=== PATIENT | female | born 2000 | race Caucasian/White ===

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

== ENCOUNTER 2020-01-31 13:08 | Emergency (ER) | payer OTHER ==
[~2020-01-31] VITALS: Ht 157.5 cm; Wt 54.4 kg
[2020-01-31] MEDS ORDERED: REVLIMID2.5 MG (13:32)
== END 2020-01-31 19:51 | disposition home or self-care (01) ==
LOC: ER 13:08
DX: B34.9 Viral infection, unspecified (principal); Z20.828 Contact with and (suspected) exposure to other viral communicable diseases; J11.1 Influenza due to unidentified influenza virus with other respiratory manifestations

== ENCOUNTER 2020-02-15 13:09 | Emergency (ER) | payer OTHER ==
[~2020-02-15] VITALS: Ht 157.5 cm; Wt 54.0 kg
[~2020-02-15 13:09] MED LIST changes: +REVLIMID2.5 MG
== END 2020-02-15 19:43 | disposition home or self-care (01) ==
LOC: ER 13:09
DX: R11.0 Nausea (principal); U07.1 COVID-19; G43.809 Other migraine, not intractable, without status migrainosus

== ENCOUNTER 2020-02-18 02:08 | Inpatient (IN) | payer OTHER ==
[~2020-02-18] VITALS: Ht 157.5 cm; Wt 54.0 kg
== END 2020-02-26 14:13 | disposition home or self-care (01) | DRG 102 ==
LOC: ER 02:08 → EMR PED 02:08 → SURG 03:15
PROVIDERS: ADMIT Internal Medicine; ATTEND Internal Medicine
PROC: B030YZZ Magnetic Resonance Imaging (MRI) of Brain using Other Contrast (ICD-10-PCS; principal; 2020-02-18)
PROC: B030ZZZ Magnetic Resonance Imaging (MRI) of Brain (ICD-10-PCS; 2020-02-19)
PROC: BW28ZZZ Computerized Tomography (CT Scan) of Head (ICD-10-PCS; 2020-02-22)
PROC: B030YZZ Magnetic Resonance Imaging (MRI) of Brain using Other Contrast (ICD-10-PCS; 2020-02-22)
DX: G44.001 Cluster headache syndrome, unspecified, intractable (principal); U07.1 COVID-19; G08 Intracranial and intraspinal phlebitis and thrombophlebitis; J10.1 Influenza due to other identified influenza virus with other respiratory manifestations; M54.81 Occipital neuralgia; M79.18 Myalgia, other site; F41.9 Anxiety disorder, unspecified; G44.209 Tension-type headache, unspecified, not intractable
CPT/HCPCS: 70552; 70553

== ENCOUNTER 2020-03-17 07:56 | Outpatient (CLI) | payer OTHER | END 2020-03-17 15:24 | disposition home or self-care (01) | LOC: MRI 07:56 | PROVIDERS: ATTEND Internal Medicine | DX: G08 Intracranial and intraspinal phlebitis and thrombophlebitis (principal); D68.8 Other specified coagulation defects; D68.69 Other thrombophilia; D68.62 Lupus anticoagulant syndrome; E72.12 Methylenetetrahydrofolate reductase deficiency | CPT/HCPCS: 70544; 70552 ==

== ENCOUNTER → 2020-03-30 06:56 | Outpatient (CLI) | payer OTHER | END | disposition home or self-care (01) | LOC: LAB 06:56 | PROVIDERS: ATTEND Internal Medicine Hematology & Oncology | DX: D68.8 Other specified coagulation defects (principal); D68.61 Antiphospholipid syndrome; E72.12 Methylenetetrahydrofolate reductase deficiency; G08 Intracranial and intraspinal phlebitis and thrombophlebitis ==

== ENCOUNTER 2020-06-20 11:19 | Outpatient (CLI) | payer OTHER | END 2020-06-20 15:00 | disposition home or self-care (01) | LOC: PPH VACUNA 11:19 | DX: Z23 Encounter for immunization (principal) ==

== ENCOUNTER 2020-06-23 08:22 | Outpatient (CLI) | payer OTHER | END 2020-06-23 08:24 | disposition home or self-care (01) | LOC: MRI 08:22 | DX: I67.6 Nonpyogenic thrombosis of intracranial venous system (principal); I82.890 Acute embolism and thrombosis of other specified veins | CPT/HCPCS: 70552 ==

== ENCOUNTER 2020-07-14 19:50 | Emergency (ER) | payer OTHER ==
[~2020-07-14] VITALS: Ht 157.5 cm; Wt 45.4 kg
[2020-07-14] MEDS ORDERED: COUMARIN1 GM PO (20:01)
== END 2020-07-14 22:59 | disposition home or self-care (01) ==
LOC: ER 19:50
DX: R10.32 Left lower quadrant pain (principal)

== ENCOUNTER → 2020-09-07 10:40 | Outpatient (CLI) | payer OTHER ==
[~2020-09-07 10:40] MED LIST changes: +COUMARIN1 GM PO
== END | disposition home or self-care (01) ==
LOC: LAB 07:41
DX: D68.69 Other thrombophilia (principal); D68.2 Hereditary deficiency of other clotting factors

== ENCOUNTER 2020-10-12 10:43 | Outpatient (CLI) | payer OTHER | END 2020-10-12 10:46 | disposition home or self-care (01) | LOC: MRI 10:43 | PROVIDERS: ATTEND Internal Medicine | DX: R51.9 Headache, unspecified (principal) | CPT/HCPCS: 70552 ==

== ENCOUNTER 2021-02-09 08:00 | Outpatient (CLI) | payer OTHER | END 2021-02-09 08:30 | disposition home or self-care (01) | LOC: PPH VACUNA 08:00 | DX: Z23 Encounter for immunization (principal) ==

== ENCOUNTER 2021-02-10 08:16 | Outpatient (CLI) | payer OTHER | END 2021-02-10 15:00 | disposition home or self-care (01) | LOC: LAB 08:16 | PROVIDERS: ATTEND Internal Medicine | DX: E11.9 Type 2 diabetes mellitus without complications (principal) ==

== ENCOUNTER 2022-06-25 10:39 | Outpatient (CLI) | payer OTHER | END 2022-06-25 11:00 | disposition home or self-care (01) | LOC: LAB 10:39 | PROVIDERS: ATTEND Internal Medicine | DX: G09 Sequelae of inflammatory diseases of central nervous system (principal) ==

== ENCOUNTER → 2022-06-25 | Outpatient (CLI) | payer OTHER | END | disposition home or self-care (01) | LOC: MRI 11:04 | PROVIDERS: ATTEND Internal Medicine | DX: Z86.718 Personal history of other venous thrombosis and embolism (principal); J11.1 Influenza due to unidentified influenza virus with other respiratory manifestations; J09.X2 Influenza due to identified novel influenza A virus with other respiratory manifestations; J45.998 Other asthma; J45.20 Mild intermittent asthma, uncomplicated; G09 Sequelae of inflammatory diseases of central nervous system | CPT/HCPCS: 70552 ==

== ENCOUNTER 2022-06-26 10:00 | Outpatient (CLI) | payer OTHER | END 2022-06-26 10:10 | disposition home or self-care (01) | LOC: PPH VACUNA 10:00 | PROVIDERS: ATTEND Emergency Medicine Pediatric Emergency Medicine | DX: Z23 Encounter for immunization (principal) ==

== ENCOUNTER 2022-06-28 10:17 | Outpatient (CLI) | payer OTHER | END 2022-06-28 14:50 | disposition home or self-care (01) | LOC: LAB 10:17 | DX: D50.8 Other iron deficiency anemias (principal); E55.9 Vitamin D deficiency, unspecified; E53.8 Deficiency of other specified B group vitamins; E53.1 Pyridoxine deficiency; E03.9 Hypothyroidism, unspecified; D68.52 Prothrombin gene mutation; D68.59 Other primary thrombophilia; D68.62 Lupus anticoagulant syndrome ==